=== PATIENT | male | born 1990 | race Caucasian/White ===

== ENCOUNTER 2016-08-24 10:48 | Emergency (ER) | payer SELFPAY ==
[~2016-08-24] VITALS: Ht 170.2 cm; Wt 70.0 kg
[2016-08-24 10:50] VITALS: BP 112/62; PULSE 60; RESP 14; TEMP 97.9; O2SAT 98
--- NOTE | 2016-08-24 11:21 | PD ---
HPI Chief Complaint: Skin Problem Time Seen by Provider: 11:18 Travel History International Travel<30 days: No Contact w/Intl Traveler<30days: No Traveled to known affect area: No History of Present Illness HPI 26-year-old male presents to the emergency department for evaluation of heel to left blister that began 3 days ago. The patient states that he is in the and had to walk for about 8 miles the other day while wearing boots. States that he sustained a blister to both heels but worse on the left. States he has been keeping it clean with soap and water and applying antibiotic ointment however it is not completely healed yet. Patient states that he is here because he supposed to report for duty again tomorrow in boots but is unable to wear them due to significant pain. He is here to get a note to be excused from tomorrow's exercises. Denies any fever, chills, nausea, vomiting, numbness or tingling. No other complaints. PFSH Past Medical History Medical History: Denies Significant Hx Social History Alcohol Use: No Tobacco Use: No Substance Use: No Allergies-Medications (Allergen,Severity, Reaction): Coded Allergies: No Known Allergies (Unverified , 08/24/16) Review of Systems Except as stated in HPI: all other systems reviewed are Neg Physical Exam Narrative GENERAL: Well-nourished and well-developed pleasant patient in no acute distress who is nontoxic appearing. SKIN: Warm and dry. 2 cm circular blister to left posterior heel. No surrounding erythema or warmth. No discharge or drainage. HEAD: Normocephalic and atraumatic. EYES: No injection, drainage, or hyphema noted. PERRLA. EOMI. ENT: No nasal drainage noted. Oropharynx is clear. NECK: Supple and the trachea is midline. CARDIOVASCULAR: Regular rate and rhythm. RESPIRATORY: Breath sounds are equal bilaterally with no accessory muscle use, wheezing, rhonchi, or crackles. NEUROLOGICAL: Awake, alert, and oriented. Normal speech and gait. Cranial nerves are grossly intact. Data Data Last Documented VS Vital Signs Date Time Temp Pulse Resp B/P Pulse Ox O2 Delivery O2 Flow Rate FiO2 08/24/16 10:50 97.9 60 14 112/62 98 MDM Medical Decision Making Medical Screen Exam Complete: Yes Emergency Medical Condition: Yes Differential Diagnosis Blister versus abrasion versus medical clearance Narrative Course 26-year-old male presents to the emergency department for evaluation of left posterior heel blister after walking miles in boots. Patient is afebrile, vital signs are stable. He is here to get a note to be excused from tomorrow's exercises because he can't wear the boots without significant pain. We'll give him an excuse for tomorrow's activities. He can resume after that. Advised follow-up with his PCP. Diagnosis Primary Impression: Blister of left heel Qualified Code: S90.822A - Blister of left heel, initial encounter Patient Instructions: Acute Wound Care (ED), Blister (ED), General Instructions Departure Forms: Tests/Procedures, Work Release Special Instructions: Please excuse Mr. Cervantes from exercises in which he has to wear boots or closed shoes. He can resume exercises 08/28/16. Additional Instructions: Keep clean and dry. Wash gently with soap and water. Apply topical antibiotic ointment daily. Follow-up with your Primary Care Physician as needed. Return to the ED for any acute worsening of symptoms. Med/Other Pt SpecificInfo: No Change to Meds Disposition: 01 DISCHARGE HOME Condition: Stable Nupur Marie Aug 24, 2016 11:21
== END 2016-08-24 12:28 | disposition home or self-care (01) ==
LOC: NEPC 10:48
DX: S90.822A Blister (nonthermal), left foot, initial encounter (principal); X58.XXXA Exposure to other specified factors, initial encounter; Y93.01 Activity, walking, marching and hiking; Y99.1 Military activity
CPT/HCPCS: 99282